=== PATIENT | female | born 1985 | race American Indian/Alaskan Native ===

== ENCOUNTER 2020-05-17 05:01 | Emergency (ER) | payer SELFPAY ==
[2020-05-17] MEDS ORDERED: ASPIRIN 325 MG TAB PO ONE (05:10)
--- NOTE | 2020-05-17 05:34 | XRay Report ---
CHEST PA AND LATERAL VIEWS INDICATION: Chest Pain. COMPARISON: None. FINDINGS: Support devices: None. Heart: Within normal limits. Lungs/Pleura: No acute pulmonary or pleural findings. IMPRESSION: 1. No acute findings. Signer Name: Ran Reed MD Signed: 05/17/2020 5:29 AM Workstation Name: [id number]
[2020-05-17 06:06] LABS: Basophils % (Auto) 0.2 % (0.0-1.8); Eosinophils % (Auto) 0.3 % (0.0-4.3); Hematocrit 35.2 % (30.3-42.9); Hemoglobin 11.6 gm/dl (10.1-14.3); Lymphocytes # (Auto) 1.6 K/mm3 (1.2-5.4); Lymphocytes % (Auto) 17.6 % (13.4-35.0); Mean Corpuscular HGB Conc 33 % (30-34); Mean Corpuscular Volume 86 fl (79-97); Monocytes # (Auto) 0.9 K/mm3 (0.0-0.8); Monocytes % (Auto) 10.1 % (0.0-7.3); Platelet Count 320 K/mm3 (140-440); Red Blood Count 4.11 M/mm3 (3.65-5.03); Red Cell Distribution Width 15.5 % (13.2-15.2)
[2020-05-17 06:24] LABS: Blood Urea Nitrogen 8 mg/dL (7-17); Calcium 9.2 mg/dL (8.4-10.2); Hemolysis Index 22
[2020-05-17 06:35] LABS: BUN/Creatinine Ratio 11
[2020-05-17 09:18] VITALS: BP 110/72
[2020-05-17] MEDS ORDERED: ACETAMINOPHEN 500 MG TAB PO ONE (09:53)
[2020-05-17] MEDS ORDERED: SODIUM CHLORIDE 0.9% 500 ML 500 ML IV ONE (09:53)
[2020-05-17] MEDS ORDERED: DEXTROSE 50% IN WATER (25GM) 50 ML VIAL IV PRN (09:53)
[2020-05-17] MEDS ORDERED: FAMOTIDINE 20 MG TAB PO ONE (09:53)
--- NOTE | 2020-05-17 09:54 | Emergency Department Report ---
ED General Adult HPI - General Chief complaint: Chest Pain Stated complaint: CP,SOB PUI?: No Time Seen by Provider: 05/17/20 09:15 Source: patient, RN notes reviewed Mode of arrival: Ambulatory Limitations: No Limitations - History of Present Illness Initial comments: The patient was evaluated in the emergency department for symptoms described in the history of present illness. He/she was evaluated in the context of the global COVID-19 pandemic, which necessitated consideration that the patient might be at risk for infection with the virus that causes COVID-19. Institutional protocols and algorithms that pertain to the evaluation of patients at risk for COVID-19 are in a state of rapid change based on information released by regulatory bodies including the CDC and federal and state organizations. These policies and algorithms were followed during the patient's care in the emergency department. Please note that these policies, procedures and recommendations changed on a rapid basis. During the history and physical examination, I am chaperoned/escorted by nurse Gregoria Pulido The patient is a 35-year-old female. She is not known to myself previously. She recently moved here from [place]. She states that she drove down from the aforementioned state to [place], approximately 1 week ago. 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 Her first pulmonary embolism/DVT was diagnosed in 2017, associated with . She has been on Lovenox, and Eliquis. Patient has been to multiple hospitals, including [facility] in [place], and [facility], also in [place], and also reports a hospitalization at [facility] November of this year. Today, she presents to the ER with complaint of nontraumatic left-sided chest pressure. The pressure does not radiate to the back, arms or neck. There is no vomiting or diaphoresis. She denies exertional shortness of breath. She endorses compliance with her Lovenox therapy. She states that her "breathing feels funny", but denies new/different exertional shortness of breath. Denies headache, neck pain, abdominal pain, vomiting, diaphoresis, hematemesis, bright red blood per rectum, urinary symptoms. -: Gradual, days(s) Location: chest Severity scale (0 -10): 5 Consistency: constant Improves with: none Worsens with: none - Related Data Previous Rx's Medication Instructions Recorded Last Taken Type Acetaminophen [Non-Aspirin Extra 500 mg PO Q6HR PRN #30 tablet 05/17/20 Unknown Rx Strength] Albuterol Sulfate [Proair 90 mcg IH Q4HR PRN #2 aer.pow.ba 05/17/20 Unknown Rx Respiclick] Enoxaparin Sodium [Lovenox] 90 mg SQ BID #30 syringe 05/17/20 Unknown Rx Allergies Allergy/AdvReac Type Severity Reaction Status Date / Time No Known Allergies Allergy Unverified 05/17/20 05:10 ED Review of Systems ROS: Stated complaint: CP,SOB Other details as noted in HPI Comment: All other systems reviewed and negative Respiratory: cough. denies: wheezing Cardiovascular: chest pain ED Past Medical Hx - Past Medical History Previous Medical History?: Yes Hx Psychiatric Treatment: Yes (Depression/Anxiety) Additional medical history: Pulmonnary Embolism, Fibroids, - Surgical History Hx Appendectomy: Yes Additional Surgical History: - Social History Smoking Status: Current Every Day Smoker Substance Use Type: None - Medications Home Medications: Home Medications Medication Instructions Recorded Confirmed Last Taken Type Acetaminophen [Non-Aspirin Extra 500 mg PO Q6HR PRN #30 tablet 05/17/20 Unknown Rx Strength] Albuterol Sulfate [Proair 90 mcg IH Q4HR PRN #2 aer.pow.ba 05/17/20 Unknown Rx Respiclick] Enoxaparin Sodium [Lovenox] 90 mg SQ BID #30 syringe 05/17/20 Unknown Rx ED Physical Exam - General Limitations: No Limitations General appearance: alert, in no apparent distress - Head Head exam: Present: atraumatic, normocephalic - Eye Eye exam: Present: normal appearance, EOMI. Absent: nystagmus - ENT ENT exam: Present: normal exam, normal orophraynx, mucous membranes moist, normal external ear exam - Neck Neck exam: Present: normal inspection, full ROM. Absent: tenderness, menin gismus - Respiratory Respiratory exam: Present: normal lung sounds bilaterally, rhonchi, other (Chaperoned by nurse Gregoria Pulido). Absent: respiratory distress, wheezes, rales, stridor, chest wall tenderness - Cardiovascular Cardiovascular Exam: Present: regular rate, normal rhythm, normal heart sounds. Absent: bradycardia, tachycardia, irregular rhythm, systolic murmur, diastolic murmur, rubs, gallop - GI/Abdominal GI/Abdominal exam: Present: soft. Absent: distended, tenderness, guarding, rebound, rigid, pulsatile mass - Extremities Exam Extremities exam: Present: normal inspection, full ROM, other (2+ pulses noted in the bilateral upper and lower extremities. There is no palpable cord. negative Homans sign. Muscular compartments are soft. The pelvis is stable.). Absent: pedal edema, calf tenderness - Back Exam Back exam: Present: normal inspection, full ROM. Absent: tenderness, CVA tenderness (R), CVA tenderness (L), paraspinal tenderness, vertebral tenderness - Neurological Exam Neurological exam: Present: alert, other (No facial droop. Tongue midline. Extraocular movements intact bilaterally. Facial sensation intact to light touch in V1, V2, V3 distribution bilaterally. 5 and a 5 strength in 4 extremities. Sensation intact to light touch in 4 extremities.). Absent: motor sensory deficit - Psychiatric Psychiatric exam: Present: normal affect, normal mood - Skin Skin exam: Present: warm, dry, intact, normal color. Absent: rash ED Course Vital Signs 05/17/20 05/17/20 05/17/20 05:34 06:37 09:18 Temperature 99.0 F 98.5 F Pulse Rate 62 78 51 L Pulse Rate [ Anterior Bilateral Throughout] Respiratory 16 18 16 Rate Respiratory Rate [Anterior Bilateral Throughout] Blood Pressure 97/33 Blood Pressure 103/66 110/72 [Left] O2 Sat by Pulse 95 100 Oximetry 05/17/20 11:03 Temperature Pulse Rate Pulse Rate [ 55 L Anterior Bilateral Throughout] Respiratory Rate Respiratory 20 Rate [Anterior Bilateral Throughout] Blood Pressure Blood Pressure [Left] O2 Sat by Pulse Oximetry - Reevaluation(s) Reevaluation #1: 05/17/20 10:32 Differential diagnosis, include but not limited to: Pulmonary emboli, pneumonia, GERD, gastritis, hiatal hernia, costochondritis Assessment and plan: 35-year-old female, currently on Lovenox therapy, [place], reports a long automotive drive within the past few weeks, now presenting with nonspecific chest pain. Patient is afebrile with reassuring vital signs. EKG unchanged x2, troponin negative x2, patient at low risk for major adverse cardiac event as per heart score. Given her reported history, I do not find the patient to be suitably with stratify able by d-dimer, I find her to be too high a pretest probability, therefore, a CT angiogram will be obtained to exclude pulmonary embolism. We will reassess after CTA has been resulted. She does have faint rhonchi on her exam, so therefore, we will give albuterol. 05/17/20 10:51 Reevaluation #2: 05/17/20 10:53 CT scan of the chest is negative for pulmonary embolism. She was found to have rhonchi and wheezing faintly on my exam, CT scan of the chest did suggest of inflamed distal airways, suggestive of reactive airway disease. She is saturating well on room air, and is not clinically volume overloaded. Patient at low risk for major adverse cardiac event as per heart score. She will be discharged with Lovenox, albuterol, acetaminophen, she will be referred to local hematology, and cardiology, and primary care. 05/17/20 10:58 As per this institutions policy, procedure and protocols, we will have the patient's face sheet faxed to [facility] cardiology, to arrange close outpatient follow-up. Reevaluation #3: 05/17/20 11:05 Repeat Accu-Chek 139. Patient reports that she feels much improved. Saturating 100% on room air. Completing her albuterol treatment. Will receive Lovenox. Counseled patient on findings and need to follow-up as an outpatient. The patient endorses understanding. ED Medical Decision Making - Lab Data Result diagrams: 05/17/20 05:21 05/17/20 05:21 Vital Signs 05/17/20 05/17/20 05/17/20 05:34 06:37 09:18 Temperature 99.0 F 98.5 F Pulse Rate 62 78 51 L Respiratory 16 18 16 Rate Blood Pressure 97/33 Blood Pressure 103/66 110/72 [Left] O2 Sat by Pulse 95 100 Oximetry Lab Results 05/17/20 05/17/20 05/17/20 Range/Units 05:21 05:21 05:21 WBC 9.0 (4.5-11.0) K/mm3 RBC 4.11 (3.65-5.03) M/mm3 Hgb 11.6 (10.1-14.3) gm/dl Hct 35.2 (30.3-42.9) % MCV 86 (79-97) fl MCH 28 (28-32) pg MCHC 33 (30-34) % RDW 15.5 H (13.2-15.2) % Plt Count 320 (140-440) K/mm3 Lymph % (Auto) 17.6 (13.4-35.0) % [place] % (Auto) 10.1 H (0.0-7.3) % Eos % (Auto) 0.3 (0.0-4.3) % Baso % (Auto) 0.2 (0.0-1.8) % Lymph # (Auto) 1.6 (1.2-5.4) K/mm3 [place] # (Auto) 0.9 H (0.0-0.8) K/mm3 Eos # (Auto) 0.0 (0.0-0.4) K/mm3 Baso # (Auto) 0.0 (0.0-0.1) K/mm3 Seg Neutrophils % 71.8 H (40.0-70.0) % Seg Neutrophils # 6.5 (1.8-7.7) K/mm3 Sodium 139 (137-145) mmol/L Potassium 4.1 (3.6-5.0) mmol/L Chloride 99.7 (98-107) mmol/L Carbon Dioxide 23 (22-30) mmol/L Anion Gap 20 mmol/L BUN 8 (7-17) mg/dL Creatinine 0.7 (0.6-1.2) mg/dL Estimated GFR > 60 ml/min BUN/Creatinine Ratio 11 % Glucose 122 H (65-100) mg/dL POC Glucose (70-105) Calcium 9.2 (8.4-10.2) mg/dL Troponin T < 0.010 (0.00-0.029) ng/mL HCG, Qual Negative (Negative) 05/17/20 05/17/20 Range/Units 07:54 09:18 WBC (4.5-11.0) K/mm3 RBC (3.65-5.03) M/mm3 Hgb (10.1-14.3) gm/dl Hct (30.3-42.9) % MCV (79-97) fl MCH (28-32) pg MCHC (30-34) % RDW (13.2-15.2) % Plt Count (140-440) K/mm3 Lymph % (Auto) (13.4-35.0) % Bingham % (Auto) (0.0-7.3) % Eos % (Auto) (0.0-4.3) % Baso % (Auto) (0.0-1.8) % Lymph # (Auto) (1.2-5.4) K/mm3 Bingham # (Auto) (0.0-0.8) K/mm3 Eos # (Auto) (0.0-0.4) K/mm3 Baso # (Auto) (0.0-0.1) K/mm3 Seg Neutrophils % (40.0-70.0) % Seg Neutrophils # (1.8-7.7) K/mm3 Sodium (137-145) mmol/L Potassium (3.6-5.0) mmol/L Chloride (98-107) mmol/L Carbon Dioxide (22-30) mmol/L Anion Gap mmol/L BUN (7-17) mg/dL Creatinine (0.6-1.2) mg/dL Estimated GFR ml/min BUN/Creatinine Ratio % Glucose (65-100) mg/dL POC Glucose 76 (70-105) Calcium (8.4-10.2) mg/dL Troponin T < 0.010 (0.00-0.029) ng/mL HCG, Qual (Negative) - EKG Data -: EKG Interpreted by Ne EKG shows normal: sinus rhythm Rate: normal - EKG Data When compared to previous EKG there are: previous EKG unavailable 05/17/20 10:29 There is no prior EKG available for comparison. EKG #1 shows a sinus rhythm, 60 bpm, with a normal axis, normal intervals, borderline high left ventricular voltage, biphasic T waves V2, abnormal EKG, the EKG is not a STEMI. - Radiology Data Radiology results: report reviewed, image reviewed Print Report Referring Physician: ED DOC Patient Name: YANET HAYWOOD Date of : 1985 Sex: Female Report Date: 2020-05-17 Report Status: Finalized Findings [facility] [address] [place] [address] XRay Report Signed Patient: YANET HAYWOOD MR#: [id number] : 1985 Acct:[id number] Age/Sex: 35 / F ADM Date: 05/17/20 Loc: ED Attending Dr: Ordering Physician: TRISTAN DAO MD Date of Service: 05/17/20 Procedure(s): XR chest routine 2V Accession Number(s): [id number] cc: TRISTAN DAO MD Fluoro Time In Minutes: CHEST PA AND LATERAL VIEWS INDICATION: Chest Pain. COMPARISON: None. FINDINGS: Support devices: None. Heart: Within normal limits. Lungs/Pleura: No acute pulmonary or pleural findings. IMPRESSION: 1. No acute findings. Signer Name: Ran Reed MD Signed: 05/17/2020 5:29 AM Workstation Name: [id number] Transcribed By: SW Dictated By: Ran Reed MD Electronically Authenticated By: Ran Reed MD Signed Date/Time: 05/17/20528 DD/ 8 TD/TT: Print Report Referring Physician: MARLA BONE Patient Name: YANET HAYWOOD Date of : 1985 Sex: Female Report Date: 2020-05-17 Report Status: Finalized Findings [facility] [address] [place] [address] Cat Scan Report Signed Patient: YANET HAYWOOD MR#: [id number] : 1985 Acct:[id number] Age/Sex: 35 / F ADM Date: 05/17/20 Loc: ED Attending Dr: Ordering Physician: MARLA BONE MD Date of Service: 05/17/20 Procedure(s): CT angio chest Accession Number(s): [id number] cc: MARLA BONE MD CTA CHEST WITH IV CONTRAST INDICATION: Acute onset chest pain with dyspnea. TECHNIQUE: Axial CT images were obtained through the chest after injection of 100 mL IV contrast. 3 plane MIP reconstructions were produced. All CT scans at this location are performed using CT dose reduction for ALARA by means of tomated exposure control. COMPARISON: None available. FINDINGS: PULMONARY ARTERIES: No pulmonary emboli. AORTA AND ARTERIES: No acute abnormality. MEDIASTINUM: No mass, lymphadenopathy or other significant abnormality. The heart is normal in size without a pericardial effusion. The trachea and main bronchi are patent and normal in caliber. LUNGS: No acute air space pneumonia but there is significant bronchial wall thickening identified bilaterally. ADDITIONAL FINDINGS: None. UPPER ABDOMEN: No acute findings. BONES: No significant osseous abnormality. IMPRESSION: 1. No CT evidence for pulmonary embolism. 2. Prominent bronchial wall thickening identified diffusely and bilaterally consistent with severe bronchitis versus reactive airways disease. No pneumonia identified. Signer Name: Catarino Wong MD Signed: 05/17/2020 10:43 AM Workstation Name: [id number] Transcribed By: BC Dictated By: Catarino Wong MD Electronically Authenticated By: Catarino Wong MD Signed Date/Time: 05/17/201042 DD/ 41 TD/TT: Critical care attestation.: If time is entered above; I have spent that time in minutes in the direct care of this critically ill patient, excluding procedure time. ED Disposition Clinical Impression: Acute chest pain, History of pulmonary embolism Reactive airway disease Qualifiers: Asthma severity: mild Asthma persistence: intermittent Asthma complication type: uncomplicated Qualified Code(s): J45.20 - Mild intermittent asthma, uncomplicated Disposition: DC-01 TO HOME OR SELFCARE Is pt being admited?: No Does the pt Need Aspirin: No Condition: Stable Additional Instructions: Do not take metformin medication for the next 2 days, if patient takes this medication. Minimize/avoid consumption of Motrin, ibuprofen, Naprosyn, Aleve. Take the albuterol as needed for cough, wheezing and shortness of breath. Take the acetaminophen as needed for pain. Use the Lovenox twice daily as directed. Follow-up with a professor of counseling, or primary care doctor, such as Dr. Reyna, or Dr. Dominguez, within the next 3 to 5 days for complaint of chest pain and reactive airway disease. Follow-up with a sign language translator, such as Dr. Duke, within the next 2 to 4 weeks for history of pulmonary emboli. Please return to the emergency room right away with new pain, worsening pain, migration of pain, projectile vomiting, change in mental status, confusion, inability to tolerate liquid feeds, new, worsened or different symptoms not pres ent on the initial emergency room evaluation. Prescriptions: Enoxaparin Sodium [Lovenox] 90 mg SQ BID #30 syringe Acetaminophen [Non-Aspirin Extra Strength] 500 mg PO Q6HR PRN #30 tablet PRN Reason: Pain , Severe (7-10) Albuterol Sulfate [Proair Respiclick] 90 mcg IH Q4HR PRN #2 aer.pow.ba PRN Reason: Wheezing Referrals: KIRSTIN DOMINGUEZ MD [Staff Physician] - 3-5 Days ELOISE DUKE MD [Staff Physician] - 3-5 Days MILAGRO REYNA MD [Staff Physician] - 3-5 Days Forms: Work/School Release Form(ED)
[2020-05-17] MEDS ORDERED: DEXTROSE 50% IN WATER (25GM) 50 ML SYRINGE IV ONE (10:00)
--- NOTE | 2020-05-17 10:48 | Cat Scan Report ---
CTA CHEST WITH IV CONTRAST INDICATION: Acute onset chest pain with dyspnea. TECHNIQUE: Axial CT images were obtained through the chest after injection of 100 mL IV contrast. 3 plane MIP re constructions were produced. All CT scans at this location are performed using CT dose reduction for ALARA by means of automated exposure control. COMPARISON: None available. FINDINGS: PULMONARY ARTERIES: No pulmonary emboli. AORTA AND ARTERIES: No acute abnormality. MEDIASTINUM: No mass, lymphadenopathy or other significant abnormality. The heart is normal in size w ithout a pericardial effusion. The trachea and main bronchi are patent and normal in caliber. LUNGS: No acute air space pneumonia but there is significant bronchial wall thickening identified saba aterally. ADDITIONAL FINDINGS: None. UPPER ABDOMEN: No acute findings. BONES: No significant osseous abnormality. IMPRESSION: 1. No CT evidence for pulmonary embolism. 2. Prominent bronchial wall thickening identified diffusely and bilaterally consistent with severe br onchitis versus reactive airways disease. No pneumonia identified. Signer Name: Catarino Wong MD Signed: 05/17/2020 10:43 AM Workstation Name: [id number]
[2020-05-17] MEDS ORDERED: ALBUTEROL 2.5 MG/3 ML NEBU IH ONE (10:49)
[2020-05-17] MEDS ORDERED: ENOXAPARIN 100 MG/1 ML INJ SUB-Q STA (10:50)
== END 2020-05-17 11:38 | disposition home or self-care (01) ==
LOC: ED 05:01
DX: J45.909 Unspecified asthma, uncomplicated (principal); R07.89 Other chest pain; F32.9 Major depressive disorder, single episode, unspecified; F41.9 Anxiety disorder, unspecified; F17.200 Nicotine dependence, unspecified, uncomplicated; Z90.49 Acquired absence of other specified parts of digestive tract; Z86.711 Personal history of pulmonary embolism; Z79.899 Other long term (current) drug therapy; Z98.890 Other specified postprocedural states
CPT/HCPCS: 36415; 71046; 71275; 80048; 82962; 84484; 84703; 85025; 93005; 94640; 96361; 96372; 96374; 99285; J1650; J7040; Q9967; 94644